=== PATIENT | male | born 1990 | race African-American/Black ===

== ENCOUNTER → 2017-03-13 | Day surgery (SDC) | payer MEDICAID ==
[~2017-03-13] MED LIST: BUPIVACAINE 0.5% 30 ML SDV ONE; D5W LR 1,000 ML IV SCH; DEXAMETHASONE 4 MG/ML VIAL ONE; HYDROmorphONE/DILAUDID 2 MG/ML INJ ONE; IOPAMIDOL (ISOVUE-300) 100 ML BTL IV ONE; LIDOCAINE 1% 5 ML SDV ID PRN; LR 1,000 ML IV ONE; METHYLENE BLUE 0.5% 50 MG/10 ML AMP ONE; MIDAZOLAM 2 MG/2 ML VIAL ONE; ONDANSETRON 4 MG/2 ML VIAL ONE; PROPOFOL 200 MG/20 ML VIAL ONE; ROCURONIUM 50 MG/5 ML VIAL ONE; ceFAZolin 2 GM/DEXTROSE 100 ML IV ONE; fentaNYL 100 MCG/2 ML INJ ONE; fentaNYL 250 MCG/5 ML INJ ONE
--- NOTE | 2017-03-13 11:49 | GOP ---
[f rep st] OPERATIVE REPORT DATE OF OPERATION: 03/13/2017 SURGEON: Nilo Prince MD PREOPERATIVE DIAGNOSIS: Left testicular cancer. POSTOPERATIVE DIAGNOSIS: Left testicular cancer. PROCEDURE PERFORMED: Left radical inguinal orchiectomy. FINDINGS: ESTIMATED BLOOD LOSS: Less than 20 mL. DESCRIPTION OF PROCEDURE: Gentleman underwent general anesthesia after appropriate time-out and mar laura and confirmation of size. He had an incision that taken from the mid scrotum up to a jorge the internal inguinal ring because of the massive size of this lesion, and then dissected out a t that point I could identify the spermatic cord. We put a [place] drain for occlusion on that and then eventually with meticulous dissection pulled out the testicle and associated tunics of the scro genet. Hemostasis was provided with electrocautery and ligatures, and then identified the vas deferen s and ligated that with a 2-0 Vicryl. Then, 0 Vicryl suture ligature, 2, were placed on the spermat ic cord, but I divided the cord into 2 parts and each one was double ligated, and at the end of the procedure, there was no bleeding. I reinspected and irrigated the wound, and then at that point put a [place] drain in the scrotum, and then approximated the external oblique fibers Camper's and Scar pa's fascia layers were approximated, and then skin elle placed. A sterile dressing placed. He will be discharged home, and he will follow up with me in the office Thursday or Thursday to have the d rain removed, and pathology is pending. ANESTHESTIOLOGIST: Bassam. /[id number]/MODL
== END | disposition home or self-care (01) ==
LOC: FSGY 08:15
PROVIDERS: ATTEND Specialist
DX: C62.92 Malignant neoplasm of left testis, unspecified whether descended or undescended (principal); R93.8 Abnormal findings on diagnostic imaging of other specified body structures
CPT/HCPCS: J0690; J1100; J1170; J2250; J2405; J2704; J3010; Q9967; Q9968